=== PATIENT | male | born 1975 | race African-American/Black ===

== ENCOUNTER 2016-06-08 17:44 | Emergency (ER) | payer MEDICAID ==
[~2016-06-08] VITALS: Ht 182.9 cm; Wt 122.5 kg
[2016-06-08] MEDS ORDERED: CITALOPRAM 10 MG TABLET PO ONE (20:15)
[2016-06-08] MEDS ORDERED: risperiDONE 2 MG TABLET PO ONE (20:15)
[2016-06-08] MEDS ORDERED: CITALOPRAM 10 MG TABLET ONE (20:21)
[2016-06-08 20:28] LABS: *BILIRUBIN,URIN NEGATIVE (NEGATIVE); *BLOOD, URINE NEGATIVE (NEGATIVE); *CLARITY,URINE CLEAR (CLEAR); *COLOR,URINE YELLOW (YELLOW); *KETONES,URINE NEGATIVE (NEGATIVE); *PROTEIN,URINE TRACE (NEGATIVE); *UROBILINOGEN,URINE 0.2 E.U./dl (NORMAL); LEUKOCYTE ESTERASE ,URINE NEGATIVE (NEGATIVE); NITRITE, URINE NEGATIVE (NEGATIVE); PH,URINE 6.5 (5.0-8.0); UGLUCOSE NEGATIVE (NEGATIVE)
[2016-06-08 20:28] LABS: BASOPHILS # (AUTO) 0.1 K/uL (0.0-0.2); BASOPHILS % (AUTO) 0.5 % (0.0-2.0); EOSINOPHILS % (AUTO) 0.1 % (0.0-7.0); HEMATOCRIT 39.4 % (40.0-50.0); HEMOGLOBIN 12.6 g/dL (14.0-18.0); LYMPHOCYTES # (AUTO) 1.8 K/uL (0.8-4.8); MEAN CORPUSCULAR HEMOGLOBIN 27.4 uug (27.0-31.0); MEAN CORPUSCULAR HGB CONC 32 g/dL (32.0-37.0); MEAN CORPUSCULAR VOLUME 85.7 fL (82.0-92.0); MONOCYTES # (AUTO) 0.7 K/uL (0.1-1.30); MONOCYTES % (AUTO) 6.2 % (0.0-11.0); NEUTROPHILS % (AUTO) 76.2 % (38.5-71.5); PLATELET COUNT (AUTO) 180 K/uL (150-450); RED CELL DISTRIBUTION WIDTH 12.8 % (11.5-14.5); WHITE BLOOD COUNT (AUTO) 10.6 K/uL (4.0-11.2)
[2016-06-08 20:34] LABS: BACTERIA,URINE NONE SEEN /HPF (NONE SEEN); RBC,URINE NONE SEEN /HPF (0-3); SQUAMOUS EPITHELIAL CELL,UR FEW /HPF (NONE SEEN); WBC,URINE NONE SEEN /HPF (0-3)
[2016-06-08 20:44] LABS: CARBON DIOXIDE 28 mmol/L (21-32); CHLORIDE 102 mmol/L (98-107); GFR 63 mL/min (>60); GLUCOSE 101 mg/dL (74-106); POTASSIUM 4.1 mmol/L (3.5-5.1); SODIUM SERUM 140 mmol/L (136-145); UREA NITROGEN, BLOOD 11 mg/dL (7-18)
[2016-06-08 20:45] LABS: ETHANOL < 3 MG/DL (0-0)
[2016-06-08 20:46] LABS: CREATININE 1.5 mg/dL (0.6-1.3)
[2016-06-08 20:55] LABS: ALANINE AMINOTRANSFERASE 48 U/L (16-63); ALBUMIN 4.3 g/dL (3.4-5.0); ALKALINE PHOSPHATASE 67 U/L (50-136); ASPARTATE AMINOTRANSFERASE 5 U/L (15-37); BILIRUBIN,DIRECT 0.1 mg/dL (0.0-0.2); BILIRUBIN,TOTAL 0.5 mg/dL (0.2-1.0); TOTAL PROTEIN, SERUM 8.1 g/dL (6.4-8.2)
[2016-06-08 20:56] LABS: *AMPHETAMINE, URINE POSITIVE (NEGATIVE); *BARBITURATE, URINE NEGATIVE (NEGATIVE); *COCCAINE, URINE NEGATIVE (NEGATIVE); *OPIATE, URINE NEGATIVE (NEGATIVE); *PHENCYCLIDINE SCREEN,URINE NEGATIVE (NEGATIVE)
[2016-06-08 21:05] LABS: ACETAMINOPHEN < 2.0 ug/mL (10-30)
[2016-06-08 21:16] LABS: *CANNABINOID, URINE POSITIVE (NEGATIVE)
--- NOTE | 2016-06-08 23:05 | NUR ---
[facility] contacted for transportation, ETA 90 minutes.
--- NOTE | 2016-06-09 00:11 | NUR ---
MALLIKA Betts at [facility] [place].
--- NOTE | 2016-06-09 00:47 | NUR ---
Patient Tranfers to outside Facility Location: [facility], Report to GILES Betts
== END 2016-06-09 00:50 | disposition short-term general hospital (02) ==
LOC: ER 17:45
DX: R44.0 Auditory hallucinations (principal); N28.9 Disorder of kidney and ureter, unspecified; D64.9 Anemia, unspecified; F17.210 Nicotine dependence, cigarettes, uncomplicated; Z59.0 Homelessness
CPT/HCPCS: 36415; 80048; 80076; 80307; 80324; 80349; 81001; 85025; 99285; A4663; G0480; G0481; G0482; G6040-TC